=== PATIENT | female | born 1985 | race Caucasian/White ===

== ENCOUNTER 2022-04-10 08:05 | Inpatient (IN) | payer BC ==
[2022-04-10] MEDS ORDERED: OXYTOCIN 30 UNITS in 0.9% NS 30 UNIT/500 ML INFUS.BAG IVPB ONE (09:50)
[2022-04-10 10:24] VITALS: BMI 29.5
[2022-04-10] MEDS ORDERED: ONDANSETRON 4 MG/2 ML VIAL ONE (10:40)
[2022-04-10] MEDS ORDERED: METOCLOPRAMIDE HCL INJECTION 10 MG/2 ML VIAL ONE (10:40)
[2022-04-10] MEDS ORDERED: TRANEXAMIC ACID 1000 MG/10 ML VIAL ONE (10:40)
[2022-04-10] MEDS ORDERED: ceFAZolin SODIUM 1 GM VIAL ONE (10:40)
[2022-04-10] MEDS ORDERED: morphine SULFATE/PF 1 MG/2 ML (2cc Syringe - QUVA) ONE (10:44)
[2022-04-10] MEDS ORDERED: FENTANYL CITRATE/PF 50 MCG/ML VIAL ONE (10:44)
[2022-04-10] MEDS ORDERED: morphine SULFATE/PF 1 MG/2 ML (2cc Syringe - QUVA) IT ONE (10:55)
[2022-04-10] MEDS ORDERED: ONDANSETRON 4 MG/2 ML VIAL IVPUSH PRN (12:18)
[2022-04-10] MEDS ORDERED: KETOROLAC TROMETHAMINE 30 MG/1 ML VIAL IVPUSH ONE (12:19)
[2022-04-10] MEDS ORDERED: OXYTOCIN 20 UNITS in 0.9% NS 20 UNIT/1,000 ML INFUS.BAG IV ONE (12:22)
[2022-04-10] MEDS ORDERED: ONDANSETRON 4 MG/2 ML VIAL IVPB PRN (12:23)
[2022-04-10] MEDS ORDERED: oxyCODONE HCL 5 MG TABLET PO PRN (12:23)
[2022-04-10] MEDS ORDERED: ACETAMINOPHEN 325 MG TABLET (FP) PO PRN (12:23)
[2022-04-10] MEDS ORDERED: ACETAMINOPHEN 1000 MG/100 ML BAG IVPB PRN (12:23)
[2022-04-10] MEDS: OXYTOCIN 20 UNITS in 0.9% NS 20 UNIT/1,000 ML INFUS.BAG IV SCH (15:05)
[2022-04-10] MEDS: SIMETHICONE 80 MG TAB.CHEW (FP) PO PRN (20:05)
[2022-04-10] MEDS: IBUPROFEN 800 MG/8 ML IJ IVPB PRN (20:05)
[2022-04-11] MEDS: SIMETHICONE 80 MG TAB.CHEW (FP) PO PRN ×3 (06:04→21:53)
[2022-04-11] MEDS: IBUPROFEN 800 MG/8 ML IJ IVPB PRN (06:04)
[2022-04-11 09:17] LABS: BASO % 0.2 % (0-2.0); EOS % 0.4 % (0-4.5); HEMATOCRIT 31.2 % (32.4-45.2); MCH 29.5 pg (25.7-33.7); MEAN PLT VOLUME 7.7 fl (7.5-11.1); NEUT % 79.4 % (42.8-82.8); PLATELET COUNT 271 10^3/uL (134-434); RBC 3.39 M/mm3 (3.60-5.2); RDW 13.4 % (11.6-15.6); WHITE BLOOD COUNT 11.9 K/mm3 (4.0-10.0)
[2022-04-11] MEDS ORDERED: IBUPROFEN 600 MG TABLET (FP) PO PRN (10:31)
[2022-04-11] MEDS: ACETAMINOPHEN 500 MG TABLET (FP) PO SCH ×2 (11:56→18:58)
[2022-04-11] MEDS: IBUPROFEN 600 MG TABLET (FP) PO PRN ×3 (11:58→21:53)
[2022-04-11] MEDS ORDERED: BISACODYL 10 MG SUPP.RECT RC PRN (12:23)
[2022-04-11] MEDS: OXYTOCIN 20 UNITS in 0.9% NS 20 UNIT/1,000 ML INFUS.BAG IV SCH (19:59)
[2022-04-12] MEDS: ACETAMINOPHEN 500 MG TABLET (FP) PO SCH ×3 (02:22→18:17)
[2022-04-12] MEDS: SIMETHICONE 80 MG TAB.CHEW (FP) PO PRN ×2 (04:09→20:25)
[2022-04-12] MEDS: IBUPROFEN 600 MG TABLET (FP) PO PRN ×3 (04:09→20:26)
[2022-04-12] MEDS: SENNOSIDES/DOCUSATE COMBO (SENNA PLUS) TABLET (UD) PO PRN (20:26)
[2022-04-13] MEDS: SIMETHICONE 80 MG TAB.CHEW (FP) PO PRN ×3 (00:28→21:50)
[2022-04-13] MEDS: IBUPROFEN 600 MG TABLET (FP) PO PRN ×4 (02:17→21:50)
[2022-04-13] MEDS: ACETAMINOPHEN 500 MG TABLET (FP) PO SCH (02:17)
[2022-04-13] MEDS: SENNOSIDES/DOCUSATE COMBO (SENNA PLUS) TABLET (UD) PO PRN (21:50)
[2022-04-13 22:37] VITALS: RESP 18
[2022-04-14] MEDS: IBUPROFEN 600 MG TABLET (FP) PO PRN ×2 (02:59→08:29)
[2022-04-14] MEDS: SIMETHICONE 80 MG TAB.CHEW (FP) PO PRN ×2 (02:59→08:29)
[2022-04-14 09:06] VITALS: BP 115/71; PULSE 90; TEMP 98.3
== END 2022-04-14 13:20 | disposition home or self-care (01) | DRG 540 ==
LOC: JLDR 08:05 → J3W 14:30
PROVIDERS: ADMIT Specialist; ATTEND Specialist
PROC: 10D00Z1 Extraction of Products of Conception, Low, Open Approach (ICD-10-PCS; principal; 2022-04-10)
DX: O44.23 Partial placenta previa NOS or without hemorrhage, third trimester (principal); O69.81X0 Labor and delivery complicated by cord around neck, without compression, not applicable or unspecified; Z3A.37 37 weeks gestation of pregnancy; Z37.0 Single live birth
CPT/HCPCS: 36415; 85025; 88307-TC

== ENCOUNTER 2024-02-15 07:00 | Inpatient (IN) | payer BC ==
[2024-02-15] MEDS: ELECTROLYTE-148 SOLN 1,000 ML IV SCH (07:30)
[2024-02-15 07:55] LABS: BASO % 0.4 % (0-2.0); EOS % 0.3 % (0-4.5); HEMATOCRIT 33.4 % (32.4-45.2); MEAN CELL VOLUME 87.8 fl (80-96); MEAN PLT VOLUME 8.1 fl (7.5-11.1); MONO % 3.7 % (3.8-10.2); NEUT % 71.6 % (42.8-82.8); PLATELET COUNT 240 10^3/uL (134-434); RDW 13.8 % (11.6-15.6); WHITE BLOOD COUNT 8.8 K/mm3 (4.0-10.0)
[2024-02-15 08:03] LABS: CHLORIDE 106 mmol/L (98-107); INR 0.88 (0.83-1.09); POTASSIUM 3.7 mmol/L (3.5-5.1); SODIUM 136 mmol/L (136-145)
[2024-02-15 08:04] LABS: CALCIUM 7.8 mg/dL (8.5-10.1)
[2024-02-15 08:05] LABS: ACTIVATED PTT 25.1 SECONDS (25.2-36.5); ANION GAP 7 mmol/L (4-13); BLOOD UREA NITROGEN 8.7 mg/dL (7-18); CO2 23 mmol/L (21-32); GLUCOSE,RANDOM 131 mg/dL (74-106)
[2024-02-15 08:08] LABS: CREATININE 0.7 mg/dL (0.55-1.3)
[2024-02-15] MEDS: CITRIC ACID/SODIUM CITRATE 30 ML UNIT-DOSE CUP PO ONE (08:10)
[2024-02-15] MEDS ORDERED: OXYTOCIN 30 UNITS in 0.9% NS 30 UNIT/500 ML INFUS.BAG IVPB ONE (08:20)
[2024-02-15] MEDS ORDERED: FENTANYL CITRATE/PF 50 MCG/ML VIAL ONE (08:22)
[2024-02-15] MEDS ORDERED: morphine SULFATE/PF 1 MG/2 ML (2cc Syringe - QUVA) ONE (08:22)
[2024-02-15] MEDS ORDERED: ONDANSETRON 4 MG/2 ML VIAL ONE (08:24)
[2024-02-15] MEDS ORDERED: METOCLOPRAMIDE HCL INJECTION 10 MG/2 ML VIAL ONE (08:24)
[2024-02-15] MEDS ORDERED: AZITHROMYCIN IVPB 500 MG/250 ML BAG IVPB ONE (08:30)
[2024-02-15] MEDS ORDERED: PHENYLEPHRINE HCL 10 MG/1 ML SINGLE DOSE VIAL ONE (08:34)
[2024-02-15] MEDS ORDERED: ceFAZolin SODIUM 1 GM VIAL ONE (08:38)
[2024-02-15] MEDS ORDERED: METHYLERGONOVINE MALEATE 0.2 MG/1 ML AMP IM PRN (09:39)
[2024-02-15 09:42] VITALS: BMI 32.4
[2024-02-15 09:59] LABS: CORD HCO3 20.9 mmHg (20-29); CORD PCO2 59.9 mmHg (30-78); CORD pH 7.161 (7.14-7.44)
[2024-02-15 10:00] LABS: CORD BASE EXCESS -5.9 mmol/L (0-2); CORD PCO2 41.2 mmHg (30-78); CORD pH 7.305 (7.14-7.44)
[2024-02-15] MEDS: OXYTOCIN 20 UNITS in 0.9% NS 20 UNIT/1,000 ML INFUS.BAG IV SCH (10:05)
[2024-02-15] MEDS ORDERED: OXYTOCIN 20 UNITS in 0.9% NS 20 UNIT/1,000 ML INFUS.BAG IV ONE (10:06)
[2024-02-15] MEDS ORDERED: ONDANSETRON 4 MG/2 ML VIAL IVPUSH PRN (10:20)
[2024-02-15] MEDS: PRENATAL VITAMINS W/ FOLIC ACID TABLET (FP) PO SCH (11:29)
[2024-02-15] MEDS: morphine SULFATE/PF 1 MG/2 ML (2cc Syringe - QUVA) IT ONE (11:29)
[2024-02-15] MEDS: ACETAMINOPHEN 1000 MG/100 ML BAG IVPB ONE (11:50)
[2024-02-15] MEDS ORDERED: ACETAMINOPHEN INJECTION 100 ML ONE (12:06)
[2024-02-15] MEDS: FAMOTIDINE 20 MG TABLET PO ONE (17:13)
[2024-02-15] MEDS ORDERED: oxyCODONE HCL 5 MG TABLET PO PRN (21:39)
[2024-02-16] MEDS: FAMOTIDINE 20 MG TABLET PO SCH
[2024-02-16] MEDS: SIMETHICONE 80 MG TAB.CHEW (FP) PO PRN
[2024-02-16] MEDS: IBUPROFEN 800 MG/8 ML IJ IVPB PRN (00:01)
[2024-02-16] MEDS: IBUPROFEN 600 MG TABLET (FP) PO PRN (08:06)
[2024-02-16 08:17] LABS: BASO % 0.2 % (0-2.0); EOS % 0.3 % (0-4.5); HEMATOCRIT 32.1 % (32.4-45.2); HEMOGLOBIN 10.6 GM/dL (10.7-15.3); MCH 29.1 pg (25.7-33.7); MEAN PLT VOLUME 8.3 fl (7.5-11.1); MONO % 6.8 % (3.8-10.2); NEUT % 73.7 % (42.8-82.8); PLATELET COUNT 234 10^3/uL (134-434); RBC 3.65 M/mm3 (3.60-5.2); RDW 13.9 % (11.6-15.6); WHITE BLOOD COUNT 9.4 K/mm3 (4.0-10.0)
[2024-02-16] MEDS ORDERED: BISACODYL 10 MG SUPP.RECT RC PRN (09:39)
[2024-02-16] MEDS: ACETAMINOPHEN 325 MG TABLET (FP) PO PRN (17:21)
[2024-02-18 07:32] LABS: BASO % 0.3 % (0-2.0); EOS % 1.3 % (0-4.5); HEMATOCRIT 28.7 % (32.4-45.2); HEMOGLOBIN 9.4 GM/dL (10.7-15.3); LYMPH % 25.1 % (8-40); MCH 28.8 pg (25.7-33.7); MCHC 32.9 g/dl (32.0-36.0); MEAN CELL VOLUME 87.6 fl (80-96); MEAN PLT VOLUME 7.5 fl (7.5-11.1); MONO % 6.6 % (3.8-10.2); NEUT % 66.7 % (42.8-82.8); PLATELET COUNT 268 10^3/uL (134-434); RBC 3.28 M/mm3 (3.60-5.2); RDW 14.2 % (11.6-15.6); WHITE BLOOD COUNT 9.8 K/mm3 (4.0-10.0)
[2024-02-18 10:13] VITALS: BP 121/76; PULSE 79; RESP 17; TEMP 98.2
== END 2024-02-18 12:00 | disposition home or self-care (01) | DRG 540 ==
LOC: JLDR 07:00 → J3W 12:35
PROVIDERS: ADMIT Obstetrics & Gynecology; ATTEND Obstetrics & Gynecology
PROC: 10D00Z1 Extraction of Products of Conception, Low, Open Approach (ICD-10-PCS; principal; 2024-02-15)
DX: O34.211 Maternal care for low transverse scar from previous cesarean delivery (principal); Z3A.38 38 weeks gestation of pregnancy; Z37.0 Single live birth
CPT/HCPCS: 36415; 36600; 59409; 80048; 82803; 85025; 85610; 85730; 86780; 86850; 86900; 86901; 88307-TC; 94010; J0131